=== PATIENT | female | born 1950 | race Caucasian/White ===

== ENCOUNTER 2019-02-01 07:45 | Outpatient (CLI) | payer OTHER ==
[2019-02-01] MEDS ORDERED: TRAMADOL HCL50 MG PO (13:29)
[2019-02-01] MEDS ORDERED: GABAPENTIN100 MG PO (13:29)
[2019-02-01] MEDS ORDERED: CIDAFLEX TABLE1 EACH PO (13:30)
== END 2019-02-01 07:59 | disposition home or self-care (01) ==
LOC: LAB 07:45
DX: D64.89 Other specified anemias (principal); D68.8 Other specified coagulation defects; N39.0 Urinary tract infection, site not specified; E11.00 Type 2 diabetes mellitus with hyperosmolarity without nonketotic hyperglycemic-hyperosmolar coma (NKHHC); E78.2 Mixed hyperlipidemia; I10 Essential (primary) hypertension

== ENCOUNTER 2019-02-23 07:00 | Day surgery (SDC) | payer OTHER ==
[~2019-02-23] VITALS: Ht 152.4 cm; Wt 61.7 kg
[~2019-02-23 07:00] MED LIST: CIDAFLEX TABLE1 EACH PO; GABAPENTIN100 MG PO; TRAMADOL HCL50 MG PO
== END 2019-02-24 08:00 | disposition home or self-care (01) ==
LOC: CIR.AMB 07:00 → RECOVERY 10:00 → EDSTATUS 10:45 → RECOVERY 10:45 → OB/GYN 19:12 → O/R 19:12 → CIR.AMB 02-24 08:00 → O/R 02-24 12:26 → OB/GYN 02-24 12:26
DX: C50.811 Malignant neoplasm of overlapping sites of right female breast (principal)